=== PATIENT | male | born 1985 | race Caucasian/White ===

== ENCOUNTER 2017-10-17 14:31 | Emergency (ER) | payer OTHER ==
[~2017-10-17] VITALS: Ht 172.7 cm; Wt 81.7 kg
[2017-10-17] MEDS ORDERED: [UNRECOGNIZED DRUG - REMARK] (14:47)
[2017-10-17] MEDS ORDERED: CRUTCH4 XX (15:09)
== END 2017-10-17 15:25 | disposition home or self-care (01) ==
LOC: ER 14:31
DX: S93.401A Sprain of unspecified ligament of right ankle, initial encounter (principal); X50.9XXA Other and unspecified overexertion or strenuous movements or postures, initial encounter; I10 Essential (primary) hypertension; Z79.899 Other long term (current) drug therapy
CPT/HCPCS: 73610; 99284-25